=== PATIENT | female | born 1965 | race Caucasian/White ===

== ENCOUNTER → 2018-01-11 14:10 | Outpatient (CLI) | payer OTHER, SELFPAY ==
--- NOTE | 2018-01-12 | EMB_PTH ---
PATIENT: CURTIS ALMEIDA LOC: [facility] U#:[id number] AGE/SX: 59/F ROOM: RE01/11/[address]: Dr. Jennifer Lambert MD : 1965 BED: DIS: SPEC #: [id number] RECD: 01/12/18 13:24 STATUS: BERTO SURAJ #: [id number] INO: 01/12/18 00:[address]: Jennifer Wade DEPT: SURGICAL PATHOLOGY RECD BY: Abel Owens ENTERED: 01/12/18 13:24 SP TYPE: ENDOM BX/C MAGGIE DR: Dr. Grisel Celeste MD Tissues: Endometrium, NOS Procedures: Surgery Specimen Level IV HEADER OPERATION: Endometrial biopsy PRE-OP DIAGNOSIS: Menometrorrhagia, anemia TISSUE SUBMITTED: Endometrial biopsy MICROSCOPIC DIAGNOSIS Endometrial biopsy: Secretory endometrium. Focal changes consistent with exogenous hormone effects. SJ:polly 01/13/18 COMMENT Please make reference to previous specimen ([id number]), endometrium, biopsy with diagnosis of secretory endometrium and stromal hyperplasia consistent with exogenous hormone effect. MICROSCOPIC DESCRIPTION Slides are reviewed. GROSS DESCRIPTION Received in fixative is one container labeled with the patient's name and designated EM biopsy. The specimen consists of multiple fragments of hemorrhagic soft tissue that in aggregate measure 3 x 2.5 x 0.3 cm. The specimen is totally submitted in one cassette. The entire specimen is submitted in one cassette. / SJ:polly 01/12/18 TC:5 CPT: 72334
== END ==
PROVIDERS: Family Provider Family Medicine; PCP Family Medicine; Referring Provider Obstetrics & Gynecology; Visit Provider Obstetrics & Gynecology
DX: N92.1 Excessive and frequent menstruation with irregular cycle (principal); D64.9 Anemia, unspecified
CPT/HCPCS: 88305

== ENCOUNTER → 2018-02-08 10:06 | Outpatient (CLI) | payer OTHER, SELFPAY ==
[2018-02-08 16:22] LABS: Hematocrit 27.8 % (37-47); Hemoglobin 7.8 g/dl (12.0-15.0); International Normalized Ratio 1.2; Mean Corp Hgb Conc 28.1 g/gl (32-36); Mean Corpuscular Hgb 20.4 pg (27.0-32.0); Mean Corpuscular Volume 72.6 fL (81-99); Mean Platelet Vol. 10.4 fl (6.2-12.0); Platelet Count 498 K/mm3 (150-450); Prothrombin Time (Protime)PT. 14.7 SECONDS (11.7-14.9); RBC Distribution Width CV 20.4 % (11.6-14.6); RBC Distribution Width SD 52.4 fl (35.1-43.9); Red Blood Count 3.83 M/mm3 (4.2-5.4); White Blood Count 9.2 K/mm3 (4.4-11.0)
[2018-02-08 16:23] LABS: Partial Thromboplast Time 25.1 Seconds (24.1-36.2)
[2018-02-08 16:24] LABS: Scan Indicated on CBC? Y/N YES- FLAGS NOTED
[2018-02-08 16:47] LABS: Anion Gap 9 (5-15); BUN 13 mg/dL (7-18); BUN/Creat Ratio 22.7 RATIO (10-20); Calcium,Total 8.7 mg/dL (8.5-10.1); Chloride 103 mmol/L (98-107); Creatinine, Serum 0.57 mg/dL (0.55-1.02); EST Glomerular Filtration Rate 118 mL/min (>60); Est Glom Filt Rate - Afr Amer 142 mL/min (>60); Glucose 137 mg/dL (74-106); Potassium 3.5 mmol/L (3.5-5.1); Sodium Level 135 mmol/L (136-145)
[2018-02-08 16:56] LABS: Hemoglobin A1c 8.5 % (4.2-6.3)
[2018-02-08 16:58] LABS: Differential Comment SCANNED
== END ==
PROVIDERS: Family Provider Family Medicine; PCP Family Medicine; Referring Provider Obstetrics & Gynecology; Visit Provider Obstetrics & Gynecology
DX: Z01.810 Encounter for preprocedural cardiovascular examination (principal)
CPT/HCPCS: 36415; 80048; 83036; 85027; 85610; 85730; 86850; 86900

== ENCOUNTER 2020-04-09 16:49 | Emergency (ER) | payer SELFPAY ==
[2020-04-09 16:51] VITALS: BP 170/80; PULSE 93; RESP 18; TEMP 35.8; O2SAT 100; BMI 31.7
--- NOTE | 2020-04-09 17:19 | EKG12_ITS ---
Test Reason : DIZZINESS Blood Pressure : / mmHG Vent. Rate : 079 BPM Atrial Rate : 079 BPM P-R Int : 196 ms QRS Dur : 098 ms QT Int : 390 ms P-R-T Axes : 028 014 020 degrees QTc Int : 447 ms Normal sinus rhythm Normal ECG Confirmed by TARIQ KAUFMAN, KO ([id number]), assistant production editor GRUPO DOWNEY ([id number]) on 04/12/2020 8:36:05 AM Referred By: ANNETTE Confirmed By:KO POTTER MD
--- NOTE | 2020-04-09 17:28 | ED.VISSUMM ---
- ER Visit Summary Date of Service: 04/09/20 Chief Complaint: Dizziness, hyperglycemia, nausea, vomiting History of Present Illness: The patient is a 54 F who presents with dizziness, hyperglycemia, nausea, and vomiting that began early this morning. Patient states it has been waxing and waning. Patient states she feels lightheaded. Patient states this is worse with standing. Patient states it is better when she lays down. Patient states she is unable to keep any of her medications down. Patient denies any fevers or chills. Patient states that whenever she moves her head her dizziness is worse. Physical Examination: Vital signs are stable. Patient is afebrile. Patient is in no acute distress. Oral mucosa is pink and moist. Neck is supple. Trachea is midline. There is no JVD noted. Heart was regular rate and rhythm. Lungs are clear and equal bilaterally. Abdomen is soft. Bowel sounds are normal. There is no tenderness. There is no rebound or guarding noted. Skin is warm dry. Cranial nerves II through XII are intact. There are no focal motor or sensory deficits noted. Extremities are intact. There is no calf tenderness or edema. Test Results: EKG was obtained. On my interpretation, there is a normal sinus rhythm with a rate of 79. There are no acute ST or T wave changes. CBC shows a mild anemia with a hemoglobin of 10.2 hematocrit 34.0. Basic metabolic profile showed a slightly elevated glucose of 206. Urinalysis does not show any evidence of urinary tract infection. Serum ketones were negative. Emergency Department Course and Treatment: Patient was given IV fluids, Zofran, and meclizine. Patient was feeling somewhat better on reevaluation. Patient was given a repeat dose of meclizine. Patient states she was feeling better. Patient no longer had nausea or dizziness whenever she moves her head. Patient was given a prescription for meclizine. Patient was instructed to follow-up with her primary care physician in 5 to 7 days. Patient understood and was agreeable with the plan. All questions were answered. Disposition: Discharge home Impression: Vertigo This note was generated with ICU [employer] software. It may contain incorrect words, spelling, and punctuation that were not noted in review of the chart prior to signing ED Disposition - Plan for ED Patient: Disposition: Home or Assisted Living Diagnosis: Vertigo Instructions: ED BPV Vertigo Prescriptions: Meclizine HCl [Antivert] 25 mg PO TID PRN PRN #20 tab PRN Reason: Dizziness Prescription Printed Referrals: Grisel Celeste MD [Primary Care Provider] - 5-7 Days
[2020-04-09] MEDS: Ondansetron 4 MG/2 ML Vial IV (17:40)
--- NOTE | 2020-04-09 17:41 | NURSING ---
NO OLD EKGS
[2020-04-09] MEDS: 0.9% Normal Saline 1,000 ML 1000 ML IV (17:43)
[2020-04-09 17:45] VITALS: BP 152/77; PULSE 80; RESP 22; O2SAT 100
[2020-04-09 17:51] LABS: Absolute Lymphocyte Count 1.14 X10^3/uL (0.83-4.51); Basophil# 0.03 X10^3/uL; Basophil% 0.3 % (0-1); Eosinophil# 0.08 X10^3/uL; Eosinophils% 0.9 % (0-5); Hemoglobin 10.2 g/dL (12.0-15.0); Lymphocyte # 1.14 X10^3/ul (4.0); Lymphocyte % 13.1 % (19-41); Mean Corpuscular Hgb 20.4 pg (27.0-32.0); Mean Platelet Vol. 9.9 fl (6.2-12.0); Monocyte# 0.37 X10^3/uL; Monocyte% 4.3 % (0-10); NRBC Flagged by Analyzer 0 % (0-5); Neutrophil # 6.99 X10^3/uL (2.7-7.7); Neutrophil % 80.7 % (47-70); POSITIVE MORPHOLOGY YES; Platelet Count 440 K/mm3 (150-450); RBC Distribution Width CV 20.2 % (11.6-14.6); RBC Distribution Width SD 46.9 fl (35.1-43.9); White Blood Count 8.7 K/mm3 (4.4-11.0)
[2020-04-09 17:53] LABS: Differential Indicated SCAN CRITERIA MET
[2020-04-09 18:02] LABS: ALB/GLOB Ratio 0.7 RATIO (0.9-2.4); AST(SGOT) 25 U/L (15-37); Alanine Aminotransfer ALT/SGPT 38 U/L (13-56); Albumin, Serum 3.6 g/dL (3.2-5.0); Alkaline Phosphatase 106 U/L (45-117); Anion Gap 11 (5-15); BUN 11 mg/dL (7-18); BUN/Creat Ratio 18.3 RATIO (10-20); Calcium,Total 9.2 mg/dL (8.5-10.1); Chloride 95 mmol/L (98-107); EST Glomerular Filtration Rate 110 mL/min (>60); Est Glom Filt Rate - Afr Amer 134 mL/min (>60); Estimated Creatinine Clearance 92.56 ml/min; Globulin 5.4 g/dL (2.2-4.2); Glucose 206 mg/dL (74-106); Lipase 67 U/L (73-393); Potassium 3.5 mmol/L (3.5-5.1); Sodium Level 131 mmol/L (136-145)
[2020-04-09] MEDS: Meclizine HCl 25 MG Tablet PO ×2 (18:09→20:30)
[2020-04-09 18:11] VITALS: BP 153/66; PULSE 78; RESP 17; O2SAT 99
[2020-04-09 18:14] LABS: Anisocytosis 1+
[2020-04-09 19:57] VITALS: BP 150/66; BP 158/71; BP 160/80; PULSE 70; PULSE 78; PULSE 79; RESP 16; O2SAT 98
[2020-04-09 19:59] LABS: Bacteria 0 SEEN /hpf (None Seen); Mucous, Urine 0 SEEN /hpf (<or=2+); Red Blood Cells-Urine 0 SEEN /hpf (0-5); White Blood Cells 0 SEEN /hpf (0-5)
[2020-04-09 20:04] LABS: Color, Urine Yellow (Yellow); Glucose, Dipstick 50 mg/dl (Normal); Ketone-Dipstick 150 mg/dl (Negative); Leukocyte Esterase-Dipstick Negative /ul (Negative); Nitrite-Dipstick Negative (Negative); Occult Blood-Urine Negative /ul (Negative); Protein-Dipstick 30 mg/dl (Negative); Specific Gravity, Urine 1.015 (1.002-1.030); Urine Bilirubin Dipstick Negative (Negative); Urine Clarity Sl. Cloudy (Clear); Urine Urobilinogen Normal (Normal)
[2020-04-09 20:07] LABS: Amorphous Sediment 1+ PHOS; Squamous Epithelial Cells - UA 0-5 SEEN /hpf (5-10)
[2020-04-09 21:59] VITALS: BP 147/71; PULSE 77; RESP 17; O2SAT 96
== END 2020-04-09 22:00 | disposition home or self-care (01) ==
PROVIDERS: Emergency Provider Emergency Medicine; PCP Family Medicine
DX: R42 Dizziness and giddiness (principal); I10 Essential (primary) hypertension; E11.9 Type 2 diabetes mellitus without complications; Z79.84 Long term (current) use of oral hypoglycemic drugs
CPT/HCPCS: 80053; 81001; 82009; 83690; 85025; 93005; 96361; 96374; 99285; J7030; A4216; J2405

== ENCOUNTER → 2021-09-08 | Outpatient (CLI) | payer SELFPAY | END | disposition home or self-care (01) | LOC: WOBLAB 10:26 | PROVIDERS: PCP Family Medicine; Visit Provider Family Medicine | DX: E11.9 Type 2 diabetes mellitus without complications (principal) | CPT/HCPCS: 36415; 83036 ==

== ENCOUNTER → 2022-04-17 | Outpatient (CLI) | payer SELFPAY ==
[2022-04-17 13:51] LABS: Absolute Neutrophil Count 6.4 X10^3/uL (2.0-7.7); Basophil# 0.06 X10^3/uL; Basophil% 0.6 % (0-1); Eosinophil# 0.12 X10^3/uL; Eosinophils% 1.2 % (0-5); Hematocrit 37.3 % (37-47); Hemoglobin 11.1 g/dL (12.0-15.0); Lymphocyte % 27.9 % (19-41); Mean Corp Hgb Conc 29.8 g/dL (32-36); Mean Corpuscular Hgb 22.1 pg (27.0-32.0); Mean Corpuscular Volume 74.3 fL (81-99); Mean Platelet Vol. 10.3 fl (6.2-12.0); Monocyte# 0.88 X10^3/uL; Monocyte% 8.5 % (0-10); NRBC Flagged by Analyzer 0 % (0-5); Neutrophil # 6.39 X10^3/uL (2.7-7.7); Neutrophil % 61.5 % (47-70); Platelet Count 474 K/mm3 (150-450); RBC Distribution Width CV 18.8 % (11.6-14.6); RBC Distribution Width SD 49.4 fl (35.1-43.9); Red Blood Count 5.02 M/mm3 (4.2-5.4); White Blood Count 10.4 K/mm3 (4.4-11.0)
[2022-04-17 14:13] LABS: Hemoglobin A1c 11.3 % (3.8-5.6)
[2022-04-17 14:20] LABS: ALB/GLOB Ratio 0.7 RATIO (0.9-2.4); AST(SGOT) 34 U/L (15-37); Alanine Aminotransfer ALT/SGPT 49 U/L (13-56); Albumin, Serum 3.5 g/dL (3.2-5.0); Alkaline Phosphatase 101 U/L (45-117); Anion Gap 7 (5-15); BUN 16 mg/dL (7-18); Calcium,Total 9.5 mg/dL (8.5-10.1); Chloride 100 mmol/L (98-107); Cholesterol 217 mg/dL (200); Creatinine, Serum 0.84 mg/dL (0.55-1.02); EST Glomerular Filtration Rate 74 mL/min (>60); Est Glom Filt Rate - Afr Amer 90 mL/min (>60); Glucose 419 mg/dL (74-106); High Density Lipoprotein 63 mg/dL; Iron 34 ug/dL (50-170); Potassium 4.1 mmol/L (3.5-5.1); Protein, Total 8.5 g/dL (6.4-8.2); Sodium Level 134 mmol/L (136-145); Triglycerides 140 mg/dL; Very Low Density Lipoprotein 28 mg/dL (5-40)
== END | disposition home or self-care (01) ==
LOC: WOBLAB 13:20
PROVIDERS: PCP Family Medicine; Visit Provider Family Medicine
DX: Z51.81 Encounter for therapeutic drug level monitoring (principal); E11.9 Type 2 diabetes mellitus without complications; D64.9 Anemia, unspecified
CPT/HCPCS: 36415; 80053; 80061; 83036; 83540; 85025

== ENCOUNTER → 2022-08-12 | Outpatient (CLI) | payer SELFPAY ==
[2022-08-12 12:11] LABS: Hemoglobin A1c 8.5 % (3.8-5.6)
== END | disposition home or self-care (01) ==
LOC: WOBLAB 11:03
PROVIDERS: PCP Family Medicine; Visit Provider Family Medicine
DX: E11.9 Type 2 diabetes mellitus without complications (principal)
CPT/HCPCS: 36415; 83036

== ENCOUNTER → 2023-02-12 | Outpatient (CLI) | payer SELFPAY ==
[2023-02-12 13:23] LABS: Iron 34 ug/dL (50-170)
[2023-02-12 13:53] LABS: Hemoglobin A1c 6.9 % (3.8-5.6)
[2023-02-15 15:08] LABS: PROEL- A/G Ratio 0.7 (0.7-1.7); PROEL- Albumin 3.4 g/dL (2.9-4.4); PROEL- Alpha-1 Globulin 0.3 g/dL (0.0-0.4); PROEL- Alpha-2 Globulin 1.1 g/dL (0.4-1.0); PROEL- Beta Globulin 1.5 g/dL (0.7-1.3); PROEL- Gamma Globulin 1.9 g/dL (0.4-1.8); PROEL- Globulin, Total 4.8 g/dL (2.2-3.9); PROEL- TOTAL PROTEIN 8.2 g/dL (6.0-8.5); PROEL-M-Spike Not Observed g/dL (Not Observed)
== END | disposition home or self-care (01) ==
LOC: POLAB3 11:38
PROVIDERS: PCP Family Medicine; Visit Provider Family Medicine
DX: E11.9 Type 2 diabetes mellitus without complications (principal); E61.1 Iron deficiency; R77.8 Other specified abnormalities of plasma proteins
CPT/HCPCS: 36415; 83036; 83540; 84165